=== PATIENT | male | born 1990 | race Caucasian/White ===

== ENCOUNTER 2016-07-03 07:58 | Emergency (ER) | payer MEDICAID ==
[~2016-07-03] VITALS: Ht 170.2 cm; Wt 72.6 kg
[2016-07-03 07:58] VITALS: BP 117/71; PULSE 62; RESP 16; TEMP 97.7; O2SAT 100
--- NOTE | 2016-07-03 07:58 | NUR ---
Patient ambulated to bed 5 to gown for evaluation, brother present.
--- NOTE | 2016-07-03 08:00 | NUR ---
ER Dr. Abad at bedside examining patient.
--- NOTE | 2016-07-03 08:05 | NUR ---
PT arrived to ED with chief complaint of ABD pain x 1 day. Reports N/V. Four witnessed Vomiting episodes. Denies change in bowel movements. ABD non-tender to touch. Reports ABD pain of 4/10. Hx. of autism spectrum disorder and seizure disorder. Does not appear in acute distress at this time. Family at bedside. Will continue to monitor
[2016-07-03] MEDS ORDERED: NACL 0.9% 1,000 ML IV ONE (08:15)
[2016-07-03] MEDS ORDERED: ONDANSETRON HCL 4 MG/2 ML VIAL IVP ONE (08:15)
[2016-07-03] MEDS ORDERED: KETOROLAC TROMETHAMINE 30 MG VIAL IVP ONE (08:15)
[2016-07-03 08:31] LABS: BILIRUBIN,URINE NEGATIVE (NEGATIVE); BLOOD, URINE NEGATIVE (NEGATIVE); CLARITY/URINE CLEAR (CLEAR); COLOR,URINE YELLOW (YELLOW); GLUCOSE,URINE NEGATIVE (NEGATIVE); KETONES,URINE TRACE (NEGATIVE); LEUKOCYTE ESTERASE ,URINE NEGATIVE (NEGATIVE); NITRITE, URINE NEGATIVE (NEGATIVE); PH,URINE 8.5 (5.0-8.0); PROTEIN URINE TRACE (NEGATIVE); UROBILINOGEN,URINE 0.2 (0.2-1.0)
[2016-07-03 08:40] LABS: BACTERIA,URINE FEW /HPF (None Seen); RBC,URINE 0-3 /HPF (0-3); WBC,URINE 0-3 /HPF (0-3)
[2016-07-03 08:41] LABS: URINE AMORPHOUS PHOSPHATES FEW /HPF (None Seen)
--- NOTE | 2016-07-03 08:48 | NUR ---
Full seizure precautions in place, padded side rails. Addendum: 07/03/16 at [id number] by MANNY Due to history of, no seizure activity noted.
--- NOTE | 2016-07-03 08:54 | NUR ---
[facility] off [facility]
--- NOTE | 2016-07-03 09:02 | NUR ---
[facility]
--- NOTE | 2016-07-03 09:10 | NUR ---
Medications administered. Pt tolerated well. Will continue to monitor
[2016-07-03 09:13] LABS: CALCIUM 8.9 mg/dL (8.4-11.0); CREATININE 0.89 mg/dL (0.55-1.30); HEMATOCRIT 44.9 % (36-54); HEMOGLOBIN 15.1 g/dL (14.0-18.0); MEAN CORPUSCULAR HEMOGLOBIN 30 pg (27-31); MEAN CORPUSCULAR HGB CONC 34 % (32-36); MEAN CORPUSCULAR VOLUME 88 fL (79.0-98.0); PLATELET COUNT (AUTO) 270 K/uL (130-430); POTASSIUM 4.3 mmol/L (3.5-5.1); RED CELL DISTRIBUTION WIDTH 12.8 % (9.0-15.0); WHITE BLOOD COUNT (AUTO) 11.8 K/uL (4.8-10.8)
[2016-07-03 09:18] LABS: ALBUMIN 4.1 g/dL (3.4-4.8); TOTAL BILIRUBIN 0.8 mg/dL (0.0-1.0); TOTAL PROTEIN, SERUM 7.2 g/dL (6.4-8.3)
[2016-07-03 10:01] LABS: BASOPHILS % (MANUAL) 0 % (0-2); EOSINOPHILS % (MANUAL) 1 % (0-7); LYMPHOCYTES % (MANUAL) 5 % (20-46); MONOCYTES % (MANUAL) 7 % (0-11)
--- NOTE | 2016-07-03 10:33 | NUR ---
Patient and brother given written and verbal discharge instructions and verbalizes understanding. ER MD discussed with patient and brother the results and treatment provided. Given copies of tests performed in ER. Patient in stable condition. ID arm band removed. IV catheter removed intact and dressing applied, no active bleeding. Rx of zofran and ibuprofen given. Patient and brother educated on pain management and to follow up with PMD. Pain Scale 2. Opportunity for questions provided and answered.
[2016-07-03 11:06] VITALS: BP 138/82; PULSE 72; RESP 20; TEMP 98.8; O2SAT 100
== END 2016-07-03 11:06 | disposition home or self-care (01) ==
LOC: SED 07:58
DX: K52.9 Noninfective gastroenteritis and colitis, unspecified (principal); I10 Essential (primary) hypertension
CPT/HCPCS: 36415; 74176; 80053; 81000; 83690; 85007; 85027; 96361; 96374; 96375; 99285; J1885; J2405; J7030

== ENCOUNTER 2016-11-29 23:42 | Emergency (ER) | payer MEDICAID ==
[~2016-11-29] VITALS: Ht 170.2 cm; Wt 81.6 kg
[2016-11-30] VITALS: BP_SYST 130
--- NOTE | 2016-11-30 | NUR ---
Patient to ER bed 7 for evaluation. Side rails up. Report given to LICHA Hardin
--- NOTE | 2016-11-30 00:02 | NUR ---
Patient AAOx4, ambulatory with steady gait. Patient states having a cuogh for approximately 1 week prior to ER visit. Patient states cough is dry cough, no mucus present. Patient states having "dry heaving" after having continuous coughing episodes. Patient denies SOB, denies chest pain. Patient denies any other complaints.
--- NOTE | 2016-11-30 00:05 | NUR ---
ER Dr. Ramos at bedside examining patient.
[2016-11-30] MEDS ORDERED: LOSA50TA3 PO (00:10)
[2016-11-30] MEDS ORDERED: IPRATROPIUM/ALBUTEROL SULFATE 3 ML AMPUL.NEB INH ONE (00:15)
[2016-11-30] MEDS ORDERED: PREDNISONE 20 MG TABLET PO ONE (00:45)
[2016-11-30 01:00] VITALS: BP_SYST 128
--- NOTE | 2016-11-30 01:02 | NUR ---
Patient given written and verbal discharge instructions and verbalizes understanding. ER MD discussed with patient the results and treatment provided. Patient in stable condition. ID arm band removed. Rx of Albuterol and prednisone given. Patient educated on pain management and to follow up with PMD. Pain Scale 0/10. Opportunity for questions provided and answered.
== END 2016-11-30 01:00 | disposition home or self-care (01) ==
LOC: SED 23:42
DX: J45.909 Unspecified asthma, uncomplicated (principal); I10 Essential (primary) hypertension; G03.9 Meningitis, unspecified; F84.0 Autistic disorder; Z79.899 Other long term (current) drug therapy
CPT/HCPCS: 71010; 99283; J7512